=== PATIENT | male | born 1980 | race Caucasian/White ===

== ENCOUNTER 2020-03-05 | Outpatient (REF) | payer OTHER, SELFPAY | END 2020-03-05 00:01 | LOC: HO.LNP | PROVIDERS: Visit Provider Nurse Practitioner Family | DX: J02.0 Streptococcal pharyngitis (principal) | CPT/HCPCS: 87071; 87880 ==

== ENCOUNTER 2020-05-01 14:00 | Outpatient (REF) | payer OTHER, SELFPAY ==
[2020-05-01 16:19] LABS: Basophils Absolute Auto 0.1 X10*3/uL (0.0-0.2); Basophils Percent Auto 0.7 % (0-2); Eosinophils Absolute Auto 0.3 X10*3/uL (0.0-0.4); Eosinophils Percent Auto 3.8 % (0-4); Hematocrit 44.8 % (42-52); Hemoglobin 15.3 g/dl (14.0-18.0); Imm Gran Abs Auto 0.02 X10*3/uL (0.00-0.03); Imm Gran Pct Auto 0.3 % (0.0-0.4); Lymphocytes Absolute Auto 2.2 X10*3/uL (1.2-4.9); Lymphocytes Percent Auto 31.4 % (20-40); MANUAL DIFF FLAG NO; Mean Corpuscular HGB Conc 34.2 g/dl (31.0-36.0); Mean Corpuscular Volume 90.7 fL (80-98); Mean Platelet Volume 10.2 fL (9.4-12.4); Monocytes Absolute Auto 0.8 X10*3/uL (0.1-1.2); Monocytes Percent Auto 11.7 % (2-11); Neutrophils Absolute Auto 3.6 X10*3/uL (2.0-8.3); Neutrophils Percent Auto 52.1 % (45-73); Platelet Count 284 X10*3/uL (160-400); Red Blood Count 4.94 X10*6/uL (4.60-5.80); Red Cell Distribution Width 12.4 % (11.0-16.0); White Blood Count 6.8 X10*3/uL (4.8-10.8)
[2020-05-01 16:46] LABS: Alanine Aminotransferase 30 U/L (0-40); Albumin Level 4.2 g/dL (3.5-5.0); Alkaline Phosphatase 92 U/L (39-117); Anion Gap 16 (12-20); Aspartate Amino Transferase 29 U/L (5-37); Blood Urea Nitrogen 9 mg/dL (9-16); Calcium 9.2 mg/dL (8.4-10.2); Carbon Dioxide 25 mmol/L (22-29); Chloride 99 mmol/L (96-108); Estimated Glomerular Filt Rate > 60; Glucose Fasting 80 mg/dL (60-99); Lactate Dehydrogenase 190 U/L (118-273); Potassium 4.6 mmol/l (3.3-5.1); Sodium 135 mmol/L (135-145); Total Protein 7.3 g/dL (6.5-8.0)
[2020-05-01 17:06] LABS: TSH reflex Free T4 3.12 mIU/mL (0.32-4.0)
[2020-05-01 19:01] LABS: Erythrocyte Sedimentation Rate 6 MM/HR (0-15)
[2020-05-02 08:33] LABS: Lyme Abs Screen <0.90 index
[2020-05-06 04:07] LABS: HBc Num1 0.07 S/CO (0.00-0.79); HIV AB/AG Nonreactive (Nonreactive); HIV Num 1 0.07 S/CO (0.00-0.99); Hepatitis B Core Antibody Nonreactive (Nonreactive); ~Hepatitis B Surface Antibody REACTIVE (Nonreactive); ~Hepatitis C Antibody Nonreactive (Nonreactive)
[2020-05-06 04:12] LABS: Hepatitis B Surface Antigen Negative (Negative)
[2020-05-08 08:10] LABS: HBsAGNum1 0.27 S/CO (0.00-0.99)
[2020-05-08 09:26] LABS: Hepatitis A Antibody IgM 0.13 Index (0-0.79); ~Hepatitis A Antibody IgM Nonreactive (Nonreactive)
== END 2020-05-01 14:01 | disposition home or self-care (01) ==
LOC: HO.HMGCLDS 14:00
PROVIDERS: PCP Nurse Practitioner Family; Visit Provider Nurse Practitioner Family
DX: R61 Generalized hyperhidrosis (principal); R79.89 Other specified abnormal findings of blood chemistry; Z11.59 Encounter for screening for other viral diseases
CPT/HCPCS: 36415; 80053; 83615; 84443; 85025; 85652; 86618; 86704; 86706; 86709; 86803; 87340; 87389

== ENCOUNTER 2020-05-14 13:59 | Outpatient (REF) | payer OTHER, SELFPAY ==
[2020-05-15 04:07] LABS: SARS COV2 IgG Negative (Negative)
== END 2020-05-14 14:00 | disposition home or self-care (01) ==
LOC: HO.HMGCLDS 13:59
PROVIDERS: PCP Nurse Practitioner Family; Visit Provider Nurse Practitioner Family
DX: R61 Generalized hyperhidrosis (principal); Z01.84 Encounter for antibody response examination
CPT/HCPCS: 36415; 86769

== ENCOUNTER 2021-02-28 13:52 | Outpatient (REF) | payer OTHER, SELFPAY ==
--- NOTE | ~2021-02-28 | XR_ITS ---
EXAMINATION: XR CHEST CLINICAL INFORMATION: Prior to infection COMPARISON: None TECHNIQUE: 2 views of the chest were obtained. FINDINGS: No significant abnormality is noted involving the heart, lungs, mediastinum, bony thorax or soft tissues. XR/XR chest 2V IMPRESSION: No acute disease.
== END 2021-02-28 13:53 | disposition home or self-care (01) ==
LOC: HO.HMGCX 13:52
PROVIDERS: PCP Nurse Practitioner Family; Visit Provider Physician Assistant Medical
DX: B34.9 Viral infection, unspecified (principal)
CPT/HCPCS: 71046

== ENCOUNTER 2021-02-28 13:52 | Outpatient (REF) | payer OTHER, SELFPAY ==
[2021-02-28 18:22] LABS: Influenza A PCR NEGATIVE (Negative); Influenza B PCR NEGATIVE (Negative); Resp Syncy Virus RNA Qual PCR NEGATIVE (Negative); SARS COV2 PCR INHOUSE NEGATIVE (Negative)
== END 2021-02-28 13:53 | disposition home or self-care (01) ==
LOC: HO.LAB 13:52
PROVIDERS: Visit Provider Physician Assistant Medical
DX: Z20.822 Contact with and (suspected) exposure to COVID-19 (principal); J06.9 Acute upper respiratory infection, unspecified
CPT/HCPCS: 0241U; 36415

== ENCOUNTER 2021-03-03 12:21 | Outpatient (REF) | payer OTHER, SELFPAY ==
[2021-03-03 14:15] LABS: Alanine Aminotransferase 17 U/L (0-40); Albumin Level 4.8 g/dL (3.5-5.0); Alkaline Phosphatase 92 U/L (39-117); Anion Gap 13 (12-20); Aspartate Amino Transferase 19 U/L (5-37); Bilirubin Total 1.7 mg/dL (0.0-1.0); Blood Urea Nitrogen 8 mg/dL (9-16); Carbon Dioxide 29 mmol/L (22-29); Chloride 104 mmol/L (96-108); Cholesterol 186 mg/dL; Estimated Glomerular Filt Rate > 60; Glucose Fasting 91 mg/dL (60-99); HDL Cholesterol 33 mg/dL; LDL Cholesterol Calculated 107 mg/dl; Potassium 4.5 mmol/L (3.3-5.1); Sodium 141 mmol/L (135-145); Total Protein 7.5 g/dL (6.5-8.0); Triglycerides 231 mg/dL
[2021-03-03 14:37] LABS: TSH reflex Free T4 1.61 uIU/mL (0.32-4.0)
== END 2021-03-03 12:22 | disposition home or self-care (01) ==
LOC: HO.HMGCLDS 12:21
PROVIDERS: PCP Nurse Practitioner Family; Visit Provider Nurse Practitioner Family
DX: F41.9 Anxiety disorder, unspecified (principal)
CPT/HCPCS: 36415; 80053; 80061; 84443

== ENCOUNTER 2021-03-12 13:00 | Outpatient (RCR) | payer OTHER, SELFPAY | END 2021-03-17 12:11 | disposition home or self-care (01) | LOC: HO.PTCHIC 13:00 | PROVIDERS: PCP Nurse Practitioner Family; Visit Provider Physician Assistant | DX: G24.9 Dystonia, unspecified (principal) | CPT/HCPCS: 97012; 97110; 97140; 97161 ==

== ENCOUNTER 2021-09-27 13:12 | Outpatient (REF) | payer OTHER, SELFPAY ==
[2021-09-27 15:19] LABS: MANUAL DIFF FLAG NO
[2021-09-27 15:32] LABS: Basophils Percent Auto 0.3 % (0-2); Eosinophils Absolute Auto 0.1 X10*3/uL (0.0-0.4); Eosinophils Percent Auto 1.7 % (0-4); Hematocrit 46.3 % (42.0-52.0); Hemoglobin 15.4 g/dl (14.0-18.0); Imm Gran Abs Auto 0.04 X10*3/uL (0.00-0.03); Imm Gran Pct Auto 0.6 % (0.0-0.4); Lymphocytes Absolute Auto 1.7 X10*3/uL (1.2-4.9); Lymphocytes Percent Auto 26.5 % (20-40); Mean Corpuscular HGB Conc 33.3 g/dl (31.0-36.0); Mean Corpuscular Hemoglobin 30.1 pg (27.0-33.0); Mean Corpuscular Volume 90.6 fL (80.0-98.0); Mean Platelet Volume 10.1 fL (9.4-12.4); Monocytes Absolute Auto 0.5 X10*3/uL (0.1-1.2); Neutrophils Percent Auto 62.9 % (45-73); Platelet Count 328 X10*3/uL (160-400); Red Blood Count 5.11 X10*6/uL (4.60-5.80); Red Cell Distribution Width 12.3 % (11.0-16.0); White Blood Count 6.3 X10*3/uL (4.8-10.8)
[2021-09-27 15:40] LABS: Alanine Aminotransferase 20 U/L (0-40); Albumin Level 4.2 g/dL (3.5-5.0); Alkaline Phosphatase 87 U/L (39-117); Anion Gap 11 (12-20); Aspartate Amino Transferase 17 U/L (5-37); Blood Urea Nitrogen 5 mg/dL (9-16); Calcium 9.5 mg/dL (8.4-10.2); Carbon Dioxide 29 mmol/L (22-29); Chloride 106 mmol/L (96-108); Cholesterol 210 mg/dL; Estimated Glomerular Filt Rate > 60; Glucose Fasting 96 mg/dL (60-99); HDL Cholesterol 39 mg/dL; LDL Cholesterol Calculated 131 mg/dl; Lipase 22 U/L (8-78); Potassium 4.7 mmol/L (3.3-5.1); Sodium 141 mmol/L (135-145); Total Protein 6.9 g/dL (6.5-8.0); Triglycerides 201 mg/dL
[2021-09-27 15:59] LABS: TSH reflex Free T4 0.98 uIU/mL (0.32-4.0)
[2021-09-29 21:56] LABS: Lyme Blot 0.97 index
[2021-10-03 12:57] LABS: 18 KD (IgG) Band NON-REACTIVE; 23 KD (IgG) Band NON-REACTIVE; 23 KD (IgM) Band NON-REACTIVE; 28 KD (IgG) Band NON-REACTIVE; 30 KD (IgG) Band NON-REACTIVE; 39 KD (IgM) Band NON-REACTIVE; 41 KD (IgM) Band NON-REACTIVE; 45 KD (IgG) Band NON-REACTIVE; 58 KD (IgG) Band NON-REACTIVE; 66 KD (IgG) Band NON-REACTIVE; 93 KD (IgG) Band NON-REACTIVE; Lyme IgG Blot Interp NEGATIVE (NEGATIVE); Lyme IgM Blot Interp NEGATIVE (NEGATIVE)
[2021-10-03 13:00] LABS: Lyme Abs Screen EQUIVOCAL
== END 2021-09-27 13:13 | disposition home or self-care (01) ==
LOC: HO.HMGCLDS 13:12
PROVIDERS: PCP Nurse Practitioner Family; Visit Provider Nurse Practitioner Family
DX: B34.9 Viral infection, unspecified (principal); R10.9 Unspecified abdominal pain; R17 Unspecified jaundice
CPT/HCPCS: 36415; 80053; 80061; 83690; 84443; 85025; 86617; 86618

== ENCOUNTER 2022-07-24 01:20 | Emergency (ER) | payer OTHER, SELFPAY ==
--- NOTE | 2022-07-24 | ECG_ITS ---
Test Reason : CHEST PAIN Blood Pressure : / mmHG Vent. Rate : 081 BPM Atrial Rate : 081 BPM P-R Int : 148 ms QRS Dur : 090 ms QT Int : 360 ms P-R-T Axes : 041 005 017 degrees QTc Int : 418 ms Normal sinus rhythm Normal ECG No previous ECGs available Referred By: Generic ED Physician Electronically Signed By:James Celaya
--- NOTE | ~2022-07-24 | CT_ITS ---
EXAMINATION: CT chest wo IV con. CLINICAL INFORMATION: Reason for Exam Fall, right-sided chest wall tenderness, R/O fract COMPARISON: No prior CT available for comparison. TECHNIQUE: Multidetector volumetric CT imaging of the chest was done. Axial MIP volume rendering provided. Sagittal and coronal reformatted images were obtained. This CT examination was performed using dose optimization techniques as appropriate, variously including the following: *Automated exposure control *Adjustment of mA and/or kV according to patient size (this includes techniques or standardized protocols for targeted exams where dose is matched to indication/reason for exam; i.e. extremities or head) *Use of iterative reconstruction technique CONTRAST: Noncontrasted study. DLP: 286 mGy-cm FINDINGS: COLOR CHECKER ROVING OR YARN: LINES/TUBES: Patient Care reviewed, no lines. LUNGS: Lung parenchyma: No evidence of significant interstitial disease. Lung nodules/masses: There are no significant lung nodules. AIRWAYS: Trachea and bronchi are normal. PLEURA: No pleural effusion or pneumothorax. MEDIASTINUM AND JOSE E: No mediastinal, hilar or axillary lymphadenopathy. No mediastinal mass. VESSELS: HEART AND PERICARDIUM: Thoracic aorta is normal in size. Heart is normal in size. No pericardial effusion. No coronary calcifications. Pulmonary arteries are normal in size. LOWER NECK, AXILLA: The visualized thyroid gland is unremarkable. No axillary mass or adenopathy. VISUALIZED ABDOMEN: Unremarkable CHEST WALL AND BONES: No chest wall mass. Subtle radiolucent line through the left first costochondral junction which could be arthritic change versus subtle nondisplaced fracture. Visualized bony structures otherwise grossly unremarkable. No other fractures or dislocation. CT/CT chest wo IV con IMPRESSION: 1. There is subtle radiolucent line through the first left costochondral junction which could be arthritic changes versus subtle nondisplaced hairline fracture, please correlate with patient's clinical history and area of tenderness. 2. Otherwise no CT explanation for chest pain, lungs are clear. No pneumothorax, no free air or fluid in the mediastinum.
--- NOTE | ~2022-07-24 | XR_ITS ---
EXAMINATION: XR CHEST CLINICAL INFORMATION: Chest pain COMPARISON: 02/28/2021 TECHNIQUE: Frontal view of the chest was obtained. FINDINGS: Normal symmetric lung volumes. No parenchymal consolidation. No pleural effusion. No pneumothorax. Cardiomediastinal silhouette and pulmonary vascularity are within normal limits. No acute osseous abnormalities. XR/XR chest 1V IMPRESSION: Clear lungs
[2022-07-24 01:41] LABS: MANUAL DIFF FLAG NO
[2022-07-24 01:42] LABS: Basophils Absolute Auto 0.1 X10*3/uL (0.0-0.2); Basophils Percent Auto 0.9 % (0-2); Eosinophils Absolute Auto 0.3 X10*3/uL (0.0-0.4); Eosinophils Percent Auto 3.3 % (0-4); Hemoglobin 15.5 g/dl (14.0-18.0); Imm Gran Abs Auto 0.01 X10*3/uL (0.00-0.03); Imm Gran Pct Auto 0.1 % (0.0-0.4); Lymphocytes Absolute Auto 2.3 X10*3/uL (1.2-4.9); Lymphocytes Percent Auto 28.3 % (20-40); Mean Corpuscular HGB Conc 34.4 g/dl (31.0-36.0); Mean Corpuscular Hemoglobin 30.1 pg (27.0-33.0); Mean Corpuscular Volume 87.4 fL (80.0-98.0); Mean Platelet Volume 9.1 fL (9.4-12.4); Monocytes Absolute Auto 0.7 X10*3/uL (0.1-1.2); Monocytes Percent Auto 8.8 % (2-11); Neutrophils Absolute Auto 4.8 x10*3/uL (2.0-8.3); Neutrophils Percent Auto 58.6 % (45-73); Platelet Count 289 X10*3/uL (160-400); Red Blood Count 5.15 X10*6/uL (4.60-5.80); White Blood Count 8.2 X10*3/uL (4.8-10.8)
[2022-07-24 01:45] VITALS: BP 130/84; PULSE 86; RESP 18; TEMP 36.6; O2SAT 98; BMI 25.8
[2022-07-24 02:03] LABS: Troponin-I High Sensitivity < 3.5 ng/L (<3.5-35.0)
[2022-07-24 02:06] LABS: Alanine Aminotransferase 37 U/L (0-40); Albumin Level 4.1 g/dL (3.5-5.0); Alkaline Phosphatase 82 U/L (39-117); Anion Gap 13 (12-20); Aspartate Amino Transferase 24 U/L (5-37); Bilirubin Total 0.7 mg/dL (0.0-1.0); Blood Urea Nitrogen 15 mg/dL (9-16); Carbon Dioxide 26 mmol/L (22-29); Chloride 104 mmol/L (96-108); Creatinine Clr Calc Pharmacy 112.2; Estimated Glomerular Filt Rate > 60; Glucose Random 89 mg/dL (60-115); Potassium 4.4 mmol/L (3.3-5.1); Sodium 139 mmol/L (135-145); Total Protein 6.9 g/dL (6.5-8.0)
[2022-07-24 03:01] VITALS: BP 132/86; PULSE 84; RESP 18; O2SAT 96
[2022-07-24 04:17] VITALS: BP 132/93; PULSE 71; RESP 17; O2SAT 98
[2022-07-24 05:52] VITALS: BP 134/91; PULSE 75; RESP 18; O2SAT 98
--- NOTE | 2022-07-24 06:16 | ED_ITS ---
HPI - Chest Pain General Chief Complaint: Chest Pain <Manish Hernandez MD - Last Filed: 07/24/22 07:21> Stated Complaint: Chest Pain/difficulty breathing <Manish Hernandez MD - Last Filed: 07/24/22 07:21> Time Seen by Provider: 07/24/22 06:15 <Manish Hernandez MD - Last Filed: 07/24/22 07:21> Source: patient <Manish Hernandez MD - Last Filed: 07/24/22 07:21> Mode of arrival: ambulatory <Manish Hernandez MD - Last Filed: 07/24/22 07:21> Limitations: no limitations <Manish Hernandez MD - Last Filed: 07/24/22 07:21> History of Present Illness HPI narrative: 41-year-old male who presents emergency department for evaluation of right-sided chest pain. The patient states that he fell on 07/06/2022 (approximately 3 weeks prior) and landed on his right chest. He states that since that time he has been having severe pain in his right chest. The pain is worse with movement and with breathing. He states he has not been able to sleep pain. He has been taking Advil and ibuprofen with no relief his pain. Patient states that this morning the pain became severe so he came to the emergency department for evaluation. <Manish Hernandez MD - Last Filed: 07/24/22 07:21> Related Data Home Medications: Previous Rx's Medication Instructions Recorded gabapentin 100 mg capsule 100 mg PO BID 20 days #40 caps 01/20/22 cholecalciferol (vitamin D3) 50 50 mcg PO DAILY 30 days #30 caps 05/13/22 mcg (2,000 unit) capsule paroxetine HCl 10 mg tablet (Paxil) 10 mg PO DAILY 90 days #90 tabs 05/18/22 prednisone 50 mg tablet 50 mg PO DAILY 6 days #6 tabs 05/26/22 lorazepam 0.5 mg tablet 0.5 mg PO BID PRN anxiety 30 days 07/22/22 #90 tabs naproxen 500 mg tablet (Naprosyn) 500 mg PO BID #20 tabs 07/24/22 <Manish Hernandez MD - Last Filed: 07/24/22 07:21> Allergies/Adverse Reactions: Allergies Allergy/AdvReac Type Severity Reaction Status Date / Time bupropion [From Wellbutrin] AdvReac Intermediate abd pain Verified 07/24/22 01:49 doxycycline AdvReac Unknown Nausea Verified 07/24/22 01:49 <Manish Hernandez MD - Last Filed: 07/24/22 07:21> Review of Systems Review of Systems: Yes all other systems are reviewed and are negative <Manish Hernandez MD - Last Filed: 07/24/22 07:21> [facility] Past Medical History [facility] Narrative: Past medical history: Reviewed below, has a history of depression as well <Manish Hernandez MD - Last Filed: 07/24/22 07:21> Medical History: Medical History Anterior to posterior tear of superior glenoid labrum of left shoulder High triglycerides Insomnia <Manish Hernandez MD - Last Filed: 07/24/22 07:21> Surgical History: Surgical History History of surgery <Manish Hernandez MD - Last Filed: 07/24/22 07:21> Family History Family History: Family History Father Lymphoma Mother No problems noted. Brother No problems noted. Brother No problems noted. <Manish Hernandez MD - Last Filed: 07/24/22 07:21> Social History Social History: Social History Patient Tobacco Use Status: Never used Tobacco Advance Directives: No Advance Directives Information Provided: Yes <Manish Hernandez MD - Last Filed: 07/24/22 07:21> Physical Exam Vital Signs: Vital Signs: Last Vital Signs Temp 97.9 F 07/24/22 01:45 Pulse 75 07/24/22 05:52 Resp 18 07/24/22 05:52 BP 134/91 H 07/24/22 05:52 Pulse Ox 98 07/24/22 05:52 O2 Del Method 07/24/22 05:52 BMI result Body Mass Index 25.8 Vital signs were not <Manish Hernandez MD - Last Filed: 07/24/22 07:21> Vital Signs: Last Vital Signs Temp 97.9 F 07/24/22 01:45 Pulse 75 07/24/22 05:52 Resp 18 07/24/22 05:52 BP 134/91 H 07/24/22 05:52 Pulse Ox 98 07/24/22 05:52 O2 Del Method 07/24/22 05:52 BMI result Body Mass Index 25.8 <Carlitos Sal MD - Last Filed: 07/24/22 08:31> General: Awake, alert, male patient, pleasant, cooperative in no distress HEENT: Head is normal cephalic atraumatic, pupils were equal round reactive light, sclera contact however normal, mouth revealed moist membranes. Neck: Supple Lungs: Clear to auscultation, breath sounds symmetric bilaterally Chest patient does have tenderness with palpation of his right yet your chest over the midclavicular line, no crepitus, no ecchymosis, no erythema Heart: Regular rate rhythm, normal S1-S2, no murmurs rubs ago Abdomen: Soft, nontender, nondistended Extremities: Normal Neuro: Nonfocal <Manish Hernandez MD - Last Filed: 07/24/22 07:21> Course Reevaluation(s) Reevaluation #1: CT Chest shows a subtle lucency at the 1st costrochodral junction not where his pain is located <Carlitos Sal MD - Last Filed: 07/24/22 08:31> Time: 08:19 <Carlitos Sal MD - Last Filed: 07/24/22 08:31> Medications Administered Discontinued Medications Generic Name Dose Route Start Last Admin Trade Name Freq PRN Reason Stop Dose Admin Oxycodone HCl 10 mg 07/24/22 06:32 07/24/22 06:36 Oxycodone Hcl Immed Release 5 Mg Tablet PO 07/24/22 06:33 10 mg ONCE ONE Administration <Manish Hernandez MD - Last Filed: 07/24/22 07:21> Medications Administered Discontinued Medications Generic Name Dose Route Start Last Admin Trade Name Murrayq PRN Reason Stop Dose Admin Oxycodone HCl 10 mg 07/24/22 06:32 07/24/22 06:36 Oxycodone Hcl Immed Release 5 Mg Tablet PO 07/24/22 06:33 10 mg ONCE ONE Administration <Carlitos Sal MD - Last Filed: 07/24/22 08:31> Medical Decision Making Medical Decision Making [facility] Narrative: 41-year-old male who presents emergency department for evaluation of right sided chest pain x3 weeks which started after he fell and landed on his right chest pain. Patient has been taking Tylenol and ibuprofen without relief his pain. Patient's physical examination did reveal right-sided chest wall tenderness. Laboratory evaluation was ordered to include CBC, CMP, troponin, chest x-ray your My interpretation of patient's laboratory evaluation is as follows: CBC was normal. CMP was normal. High sensitive troponin I was below detectable limits. Chest x-ray revealed no acute disease. Patient was given oxycodone 10 mg orally . Given the severity of his pain and his description of his injury, I did order a CT scan of the chest to further evaluate his pain. 0718: At the end of my shift, the CT scan of the patient's chest is pending. The patient's care was turned over to my colleague, Dr. Carlitos Sal. <Manish Hernandez MD - Last Filed: 07/24/22 07:21> Differential Diagnosis Differential diagnosis includes but is not limited to the musculoskeletal injury, sternal fracture , rib fracture <Manish Hernandez MD - Last Filed: 07/24/22 07:21> Lab Data [facility] Lab Attestation statement: I reviewed the patient's lab results. <Manish Hernandez MD - Last Filed: 07/24/22 07:21> Result Diagrams: 07/24/22 01:34 07/24/22 01:34 <Manish Hernandez MD - Last Filed: 07/24/22 07:21> Labs: Lab Results 07/24/22 07/24/22 07/24/22 Range/Units 01:34 01:34 01:34 WBC 8.2 (4.8-10.8) X10*3/uL RBC 5.15 (4.60-5.80) X10*6/uL Hgb 15.5 (14.0-18.0) g/dl Hct 45.0 (42.0-52.0) % MCV 87.4 (80.0-98.0) fL MCH 30.1 (27.0-33.0) pg MCHC 34.4 (31.0-36.0) g/dl RDW 12.0 (11.0-16.0) % Plt Count 289 (160-400) X10*3/uL MPV 9.1 L (9.4-12.4) fL Immature Gran % (Auto) 0.1 (0.0-0.4) % Neut % (Auto) 58.6 (45-73) % Lymph % (Auto) 28.3 (20-40) % [place] % (Auto) 8.8 (2-11) % Eos % (Auto) 3.3 (0-4) % Baso % (Auto) 0.9 (0-2) % Lymph # (Auto) 2.3 (1.2-4.9) X10*3/uL [place] # (Auto) 0.7 (0.1-1.2) X10*3/uL Eos # (Auto) 0.3 (0.0-0.4) X10*3/uL Baso # (Auto) 0.1 (0.0-0.2) X10*3/uL Abs Immat Gran (auto) 0.01 (0.00-0.03) X10*3/uL Absolute Neuts (auto) 4.8 (2.0-8.3) x10*3/uL Absolute Nucleated RBC 0.000 (0.0-0.012) X10*3/uL Nucleated RBC % (auto) 0.0 (0.0-0.2) /100WBC Sodium 139 (135-145) mmol/L Potassium 4.4 (3.3-5.1) mmol/L Chloride 104 (96-108) mmol/L Carbon Dioxide 26 (22-29) mmol/L Anion Gap 13 (12-20) BUN 15 (9-16) mg/dL Creatinine 0.81 (0.5-1.4) mg/dL Estim Creat Clear Calc 112.2 Estimated GFR > 60 Random Glucose 89 (60-115) mg/dL Calcium 9.0 (8.4-10.2) mg/dL Total Bilirubin 0.7 (0.0-1.0) mg/dL AST 24 (5-37) U/L ALT 37 (0-40) U/L Alkaline Phosphatase 82 (39-117) U/L Troponin I High Sens < 3.5 (<3.5-35.0) ng/L Total Protein 6.9 (6.5-8.0) g/dL Albumin 4.1 (3.5-5.0) g/dL <Manish Hernandez MD - Last Filed: 07/24/22 07:21> Lab Results 07/24/22 07/24/22 07/24/22 Range/Units 01:34 01:34 01:34 WBC 8.2 (4.8-10.8) X10*3/uL RBC 5.15 (4.60-5.80) X10*6/uL Hgb 15.5 (14.0-18.0) g/dl Hct 45.0 (42.0-52.0) % MCV 87.4 (80.0-98.0) fL MCH 30.1 (27.0-33.0) pg MCHC 34.4 (31.0-36.0) g/dl RDW 12.0 (11.0-16.0) % Plt Count 289 (160-400) X10*3/uL MPV 9.1 L (9.4-12.4) fL Immature Gran % (Auto) 0.1 (0.0-0.4) % Neut % (Auto) 58.6 (45-73) % Lymph % (Auto) 28.3 (20-40) % [place] % (Auto) 8.8 (2-11) % Eos % (Auto) 3.3 (0-4) % Baso % (Auto) 0.9 (0-2) % Lymph # (Auto) 2.3 (1.2-4.9) X10*3/uL [place] # (Auto) 0.7 (0.1-1.2) X10*3/uL Eos # (Auto) 0.3 (0.0-0.4) X10*3/uL Baso # (Auto) 0.1 (0.0-0.2) X10*3/uL Abs Immat Gran (auto) 0.01 (0.00-0.03) X10*3/uL Absolute Neuts (auto) 4.8 (2.0-8.3) x10*3/uL Absolute Nucleated RBC 0.000 (0.0-0.012) X10*3/uL Nucleated RBC % (auto) 0.0 (0.0-0.2) /100WBC Sodium 139 (135-145) mmol/L Potassium 4.4 (3.3-5.1) mmol/L Chloride 104 (96-108) mmol/L Carbon Dioxide 26 (22-29) mmol/L Anion Gap 13 (12-20) BUN 15 (9-16) mg/dL Creatinine 0.81 (0.5-1.4) mg/dL Estim Creat Clear Calc 112.2 Estimated GFR > 60 Random Glucose 89 (60-115) mg/dL Calcium 9.0 (8.4-10.2) mg/dL Total Bilirubin 0.7 (0.0-1.0) mg/dL AST 24 (5-37) U/L ALT 37 (0-40) U/L Alkaline Phosphatase 82 (39-117) U/L Troponin I High Sens < 3.5 (<3.5-35.0) ng/L Total Protein 6.9 (6.5-8.0) g/dL Albumin 4.1 (3.5-5.0) g/dL <Carlitos Sal MD - Last Filed: 07/24/22 08:31> Independent Interpretation I performed an independent interpretation of an: EKG <Manish Hernandez MD - Last Filed: 07/24/22 07:21> Interpretation: My independent interpretation patient's 12 EKG done at 01:25 hours is as follows: Normal sinus rhythm with a rate of 81, normal IL interval, QRS duration and QTC interval, no ST segment elevation, no ST segment depression, no PACs, no PVCs, this is a normal EKG. <Manish Hernandez MD - Last Filed: 07/24/22 07:21> Radiology Impression Discussion of test interpretation with radiology: I have reviewed the radiologist's reading. <Manish Hernandez MD - Last Filed: 07/24/22 07:21> Radiologist Impression: XR/XR chest 1V IMPRESSION: Clear lungs Dictated By:Angel Dickey MDSigned By:<Electronically signed by Angel Dickey MD in OV>07/24/22518 <Manish Hernandez MD - Last Filed: 07/24/22 07:21> Discharge Plan Discharge Clinical Impression: Contusion of rib <Manish Hernandez MD - Last Filed: 07/24/22 07:21> Patient Disposition: Home, Self-Care <Manish Hernandez MD - Last Filed: 07/24/22 07:21> Instructions: Contusion in Adults (ED), Rib Contusion (ED) <Manish Hernandez MD - Last Filed: 07/24/22 07:21> Prescriptions: New naproxen [Naprosyn] 500 mg tablet 500 mg PO BID Qty: 20 0RF No Action gabapentin 100 mg capsule 100 mg PO BID 20 Days Qty: 40 0RF cholecalciferol (vitamin D3) 50 mcg (2,000 unit) capsule 50 mcg PO DAILY 30 Days Qty: 30 4RF paroxetine HCl [Paxil] 10 mg tablet 10 mg PO DAILY 90 Days Qty: 90 0RF prednisone 50 mg tablet 50 mg PO DAILY 6 Days Qty: 6 0RF lorazepam 0.5 mg tablet 0.5 mg PO BID PRN (Reason: anxiety) 30 Days Qty: 90 1RF Rx Instructions: .5mg during day (PRN), may take 1mg total at night (PRN) <Manish Hernandez MD - Last Filed: 07/24/22 07:21> Referrals: [facility] SUPPORT SPECIALIST-BC [Primary Care Provider] - 1 week <Manish Hernandez MD - Last Filed: 07/24/22 07:21>
[2022-07-24] MEDS: oxyCODONE HCl Immed Release 5 MG TABLET 10 MG PO (06:36)
--- NOTE | 2022-07-24 08:39 | PC.NURSE ---
PT STANDING AT NURSE'S STATION ASKING WHAT THE PLAN IS. DR SIMMONS SPOKE TO PATIENT AND SAID HE WAS GOING TO BE DISCHARGED HOME. PT UPSET STATING I CAN'T BELIEVE I WAS HERE THIS LONG ATTEMPTED TO PRINT DISCHARGE PAPERWORK TO PROVIDE TO PATIENT. PT LEFT PRIOR TO RECEIVING PAPERWORK PT WAS AWAKE, ALERT AND ORIENTED. DRESSED, STANDING OUTSIDE OF HIS ROOM. SKIN WARM AND DRY. RESP UNLABORED. SPEAKING IN FULL CLEAR SENTENCES. NO ACUTE DISTRESS NOTED. AMBULATED OUT OF ER, DID NOT WAIT FOR DC INSTRUCTIONS. -NURSE TECHNICIAN
== END 2022-07-24 08:48 | disposition home or self-care (01) ==
PROVIDERS: Emergency Provider Emergency Medicine Emergency Medical Services; PCP Nurse Practitioner Family
DX: R07.89 Other chest pain (principal); R07.81 Pleurodynia; M54.6 Pain in thoracic spine; Z79.899 Other long term (current) drug therapy
CPT/HCPCS: 36415; 71045; 71250; 80053; 84484; 85025; 93005; 99284

== ENCOUNTER 2022-12-11 13:48 | Outpatient (AMB) | payer OTHER, SELFPAY ==
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
[2022-12-11 13:59] VITALS: BP 110/80; PULSE 106; TEMP 36.8; O2SAT 95
== END 2022-12-11 15:18 | disposition home or self-care (01) ==
PROVIDERS: PCP Nurse Practitioner Family; Visit Provider Physician Assistant
DX: M25.512 Pain in left shoulder (principal); Z48.02 Encounter for removal of sutures
CPT/HCPCS: 96372; 99213; J1885